=== PATIENT | male | born 1985 | race Caucasian/White ===

== ENCOUNTER 2024-08-28 15:07 | Emergency (ER) | payer SELFPAY ==
[~2024-08-28] VITALS: Ht 180.3 cm; Wt 113.4 kg
[2024-08-28 15:10] VITALS: O2SAT 98
[2024-08-28 16:21] LABS: BASOPHILS % 0.8 % (0.0-2.0); EOSINOPHILS % 1.2 % (0.0-5.0); HEMATOCRIT. 41.1 % (42.0-52.0); HEMOGLOBIN. 13.6 g/dL (14.0-18.0); MEAN CORPUSCULAR HEMOGLOBIN 31.5 pg (28.0-32.0); MEAN CORPUSCULAR VOLUME 95.6 fL (80.0-94.0); MEAN PLATELET VOLUME 8.1 fl (7.4-10.4); MONOCYTES % 5.5 % (2.0-8.0); NEUTROPHILS % 68.5 % (40.0-76.0); PLATELET 147 x1000/uL (130-400); WHITE BLOOD COUNT 9.1 x1000/uL (4.5-11.0)
[2024-08-28 16:30] LABS: CHLORIDE 103 mEq/L (98-107); POTASSIUM 3.7 mEq/L (3.5-5.1); SODIUM 137 mEq/L (136-145)
[2024-08-28 16:31] LABS: CALCIUM 8.9 mg/dL (8.7-10.4); CARBON DIOXIDE 26 mEq/L (21-32)
[2024-08-28 16:36] LABS: CREATININE 0.8 mg/dL (0.6-1.3); GLUCOSE 97 mg/dL (70-105); UREA NITROGEN BLOOD 11 mg/dL (9-23)
[2024-08-28 16:48] LABS: TROPONIN I HIGH SENSITIVITY < 4 ng/L (3.0-53)
[2024-08-29] MEDS ORDERED: P50 MT (01:38)
[2024-08-29] MEDS ORDERED: ALBU18HF2 IH (01:38)
[2024-08-29 02:04] VITALS: BP 183/79; PULSE 72; RESP 16; TEMP 37.00296; O2SAT 98
== END 2024-08-29 02:15 | disposition home or self-care (01) ==
LOC: ER 15:07
DX: J40 Bronchitis, not specified as acute or chronic (principal); Z20.822 Contact with and (suspected) exposure to COVID-19
CPT/HCPCS: 36415; 71045; 80048; 84484; 85025; 87426; 87804; 93005; 99285